=== PATIENT | female | born 1950 | race African-American/Black ===

== ENCOUNTER 2024-11-05 22:16 | Emergency (ER) | payer MEDICARE, OTHER ==
[~2024-11-05] VITALS: Ht 165.1 cm; Wt 64.0 kg
[2024-11-05] MEDS: METHYLPREDNISOLONE SOD SUCC 125MG/2ML (ACT-O-VIAL) IV STA (22:49)
[2024-11-05 23:21] LABS: BASOPHILS % 1.7 % (0.0-2.0); DIFFERENTIAL COMMENT 0; EOSINOPHILS % 2.2 % (0.0-5.0); HEMATOCRIT. 53.1 % (36.0-48.0); HEMOGLOBIN. 16.5 g/dL (12.0-16.0); LYMPHOCYTES % 22.9 % (20.0-50.0); MEAN CORPUSCULAR HEMOGLOBIN 28.3 pg (28.0-32.0); MEAN CORPUSCULAR VOLUME 91.2 fL (81.0-99.0); MEAN PLATELET VOLUME 9.1 fl (7.4-10.4); MONOCYTES % 10.2 % (2.0-8.0); PLATELET 132 x1000/uL (130-400); RED BLOOD CELL COUNT 5.82 mill/uL (4.2-5.4); RED CELL DISTRIBUTION WIDTH 16.6 % (11.6-14.6); WHITE BLOOD COUNT 4.2 x1000/uL (4.5-11.0)
[2024-11-05 23:30] LABS: CHLORIDE 104 mEq/L (98-107); POTASSIUM 4.3 mEq/L (3.5-5.1); SODIUM 139 mEq/L (136-145)
[2024-11-05 23:31] LABS: CALCIUM 9.6 mg/dL (8.7-10.4); CARBON DIOXIDE 27 mEq/L (21-32)
[2024-11-05 23:36] LABS: CREATININE 0.9 mg/dL (0.6-1.0); GLUCOSE 88 mg/dL (70-105); UREA NITROGEN BLOOD 15 mg/dL (9-23)
[2024-11-05 23:37] LABS: TROPONIN I HIGH SENSITIVITY 13 ng/L (3.0-34)
[2024-11-06] MEDS: METHYLPREDNISOLONE SOD SUCC 125MG/2ML (ACT-O-VIAL) IV NR (00:43)
[2024-11-06 00:49] VITALS: PULSE 79; RESP 20; O2SAT 98
[2024-11-06] MEDS: IPRATROPIUM BROMIDE (0.02%) 0.5MG/2.5ML NEB HHN STA (00:49)
[2024-11-06] MEDS: ALBUTEROL (0.083%) 2.5MG/3ML NEB HHN SCH (00:50)
[2024-11-06 01:20] VITALS: PULSE 82; RESP 20; O2SAT 98
[2024-11-06 01:50] VITALS: PULSE 80; RESP 20; O2SAT 99
[2024-11-06 02:32] LABS: TROPONIN I HIGH SENSITIVITY 16 ng/L (3.0-34)
[2024-11-06] MEDS: HYDRALAZINE 20MG/ML VIAL IV ONE (03:03)
[2024-11-06 03:23] VITALS: BP 132/68; PULSE 80; RESP 20; TEMP 36.8; O2SAT 97
== END 2024-11-06 04:01 | disposition admitted as inpatient to this hospital (09) ==
LOC: ER 22:16
DX: J44.1 Chronic obstructive pulmonary disease with (acute) exacerbation (principal); I10 Essential (primary) hypertension; F17.200 Nicotine dependence, unspecified, uncomplicated
CPT/HCPCS: 99291; 80048; 83880; 85025; 84484 ×2; 36415 ×2; 71045; 93005; 96374; 96375; 94640; J2919; J0360; 94070; 94664; 98960; A4606

== ENCOUNTER 2025-05-10 23:27 | Inpatient (IN) | payer OTHER, MEDICARE ==
[~2025-05-10] VITALS: Ht 175.3 cm; Wt 49.0 kg
[2025-05-11] MEDS: IPRATROPIUM BROMIDE (0.02%) 0.5MG/2.5ML NEB HHN ONE (00:14)
[2025-05-11] MEDS: ALBUTEROL (0.083%) 2.5MG/3ML NEB HHN ONE (00:14)
[2025-05-11 00:29] LABS: BG BASE EXCESS 1.0 mmol/L (-2.0-3.0); BG CARBOXYHEMOGLOBIN 5.2 % (0.5-1.5); BG DEOXYHEMOGLOBIN 6.9 % (0.0-5.0); BG FLOW(L/min) 2.00 L/min; BG HCO3 ACT 26.2 mmol/L (21.0-28.0); BG METHEMOGLOBIN 0.0 % (0.5-1.5); BG OXYGEN SATURATION 92.7 % (94.0-98.0); BG OXYHEMOGLOBIN 87.9 % (94.0-98.0); BG PCO2 43.8 mmHg (32.0-45.0); BG PH 7.395 (7.350-7.450); BG PO2 63.9 mmHg (83.0-108.0); BG SAMPLE SITE RIGHT RADIAL; BG TOTAL HEMOGLOBIN 15.0 g/dL (12.0-16.0); BG VENT MODE NASAL CANNULA
[2025-05-11 00:32] VITALS: PULSE 83; RESP 22; O2SAT 95
[2025-05-11 00:55] LABS: BASOPHILS % 0.8 % (0.0-2.0); EOSINOPHILS % 3.5 % (0.0-5.0); HEMATOCRIT. 43.7 % (36.0-48.0); HEMOGLOBIN. 14.0 g/dL (12.0-16.0); LYMPHOCYTES % 23.5 % (20.0-50.0); MEAN PLATELET VOLUME 9.5 fl (7.4-10.4); MONOCYTES % 7.9 % (2.0-8.0); NEUTROPHILS % 64.3 % (40.0-76.0); PLATELET 182 x1000/uL (130-400); RED BLOOD CELL COUNT 4.94 mill/uL (4.2-5.4); RED CELL DISTRIBUTION WIDTH 15.9 % (11.6-14.6)
[2025-05-11] MEDS: METHYLPREDNISOLONE SOD SUCC 125MG/2ML (ACT-O-VIAL) IV ONE (00:58)
[2025-05-11 01:21] LABS: TROPONIN I HIGH SENSITIVITY 17 ng/L (3.0-34)
[2025-05-11 01:22] LABS: CREATININE 1.3 mg/dL (0.6-1.0); UREA NITROGEN BLOOD 26.0 mg/dL (9-23)
[2025-05-11] MEDS ORDERED: ONDANSETRON HCL 4MG/2ML INJ IV PRN (09:45)
[2025-05-11 10:26] VITALS: BP 140/70; PULSE 72; RESP 20; TEMP 36.2512
[2025-05-11] MEDS ORDERED: ALBU4TAB6 MT (10:37)
[2025-05-11] MEDS: PREDNISONE 20MG TABLET PO SCH (15:18)
[2025-05-11 16:00] VITALS: BP 126/58; PULSE 71; RESP 20; TEMP 36.9; O2SAT 100
[2025-05-11] MEDS: ENOXAPARIN 60MG/0.6ML SYR SUBCUT SCH (17:35)
[2025-05-11 20:00] VITALS: BP 142/62; PULSE 65; RESP 18; TEMP 36.7; O2SAT 98
[2025-05-11 21:34] VITALS: PULSE 65; RESP 19; O2SAT 97
[2025-05-11] MEDS: IPRATROPIUM/ALBUTEROL 0.5-3(2.5)MG/3ML NEB HHN SCH (21:34)
[2025-05-11] MEDS: FAMOTIDINE 20MG TABLET PO SCH (22:47)
[2025-05-12] VITALS (10 sets, daily range): BP systolic 130–140; BP diastolic 59–80; PULSE 68–87; RESP 18–20; TEMP 35.9–37.3; O2SAT 95–99
[2025-05-12 07:46] LABS: BASOPHILS % 0.6 % (0.0-2.0); EOSINOPHILS % 0.4 % (0.0-5.0); HEMATOCRIT. 44.7 % (36.0-48.0); HEMOGLOBIN. 14.1 g/dL (12.0-16.0); LYMPHOCYTES % 21.5 % (20.0-50.0); MEAN PLATELET VOLUME 10.4 fl (7.4-10.4); MONOCYTES % 9.9 % (2.0-8.0); NEUTROPHILS % 67.6 % (40.0-76.0); PLATELET 177 x1000/uL (130-400); RED BLOOD CELL COUNT 5.16 mill/uL (4.2-5.4); RED CELL DISTRIBUTION WIDTH 15.5 % (11.6-14.6)
[2025-05-12 07:56] LABS: CREATININE 1.0 mg/dL (0.6-1.0); UREA NITROGEN BLOOD 30 mg/dL (9-23)
[2025-05-12 07:58] LABS: ASPARTATE AMINOTRANSFERASE 20 IU/L (<34); BILIRUBIN TOTAL 0.6 mg/dL (0.1-1.0); PROTEIN TOTAL 5.8 g/dL (6.0-8.3)
[2025-05-12 07:59] LABS: INR 1.0
[2025-05-12] MEDS: ENOXAPARIN 60MG/0.6ML SYR SUBCUT SCH (09:06)
[2025-05-13] VITALS (8 sets, daily range): BP systolic 132–148; BP diastolic 60–75; PULSE 73–86; RESP 18–21; TEMP 36.4–37.7; O2SAT 92–99
[2025-05-13] MEDS ORDERED: ALBU18HF2 IH (10:00)
[2025-05-13] MEDS ORDERED: P20 MT (10:00)
[2025-05-13] MEDS ORDERED: FLUT1DIS3 INH (10:00)
[2025-05-13] MEDS: ACETAMINOPHEN 325MG TABLET PO PRN (10:08)
[2025-05-13 13:57] LABS: BG BASE EXCESS 2.3 mmol/L (-2.0-3.0); BG CARBOXYHEMOGLOBIN 1.4 % (0.5-1.5); BG DEOXYHEMOGLOBIN 7.0 % (0.0-5.0); BG FRACTION INSPIRED OXYGEN 21; BG HCO3 ACT 26.2 mmol/L (21.0-28.0); BG METHEMOGLOBIN 0.3 % (0.5-1.5); BG OXYGEN SATURATION 92.9 % (94.0-98.0); BG OXYHEMOGLOBIN 91.3 % (94.0-98.0); BG PCO2 38.8 mmHg (32.0-45.0); BG PH 7.448 (7.350-7.450); BG PO2 63.3 mmHg (83.0-108.0); BG SAMPLE SITE LEFT BRACHIAL; BG TOTAL HEMOGLOBIN 16.0 g/dL (12.0-16.0); BG VENT MODE ROOM AIR
== END 2025-05-13 20:31 | disposition home or self-care (01) | DRG 189 ==
LOC: ER 23:27 → 8WST 05-11 01:40 → EDBEDREQ 05-11 05:15 → EDBEDREQTM 05-11 05:15 → ENRESERV 05-11 06:36
PROVIDERS: ADMIT Internal Medicine; ATTEND Internal Medicine
DX: J96.21 Acute and chronic respiratory failure with hypoxia (principal); N17.0 Acute kidney failure with tubular necrosis; J44.1 Chronic obstructive pulmonary disease with (acute) exacerbation; I10 Essential (primary) hypertension; Z79.899 Other long term (current) drug therapy; Z99.81 Dependence on supplemental oxygen
CPT/HCPCS: 36415; 36600; 71045; 80048; 80053; 82375; 82805; 83605; 84484; 85025; 93005; 94070; 94618; 94640; 94760; 96374; 99291; J1650; J2919; J7512